=== PATIENT | female | born 1965 | race Caucasian/White ===

== ENCOUNTER 2017-04-19 11:49 | Emergency (ER) | payer OTHER ==
[~2017-04-19] VITALS: Ht 154.9 cm; Wt 82.0 kg
[2017-04-19 11:54] VITALS: Ht 154.9 cm; Wt 82.0 kg
[2017-04-19] MEDS ORDERED: ONDANSETRON (ODT) 4 MG TAB ODT STA (13:55)
[2017-04-19] MEDS ORDERED: MECLIZINE 12.5 MG TAB PO ONE (14:00)
[2017-04-19 14:26] LABS: URINE BLOOD (Dip) POC Trace-intact (NEGATIVE)
[2017-04-19 14:30] LABS: ADD SCAN DIFF NO
[2017-04-19] MEDS ORDERED: ACETAMINOPHEN 500 MG TAB PO STA (14:30)
[2017-04-19 14:31] LABS: BASOPHIL # 0.1 10^3/ul (0.0-0.1); BASOPHILS % 1.5 % (0.0-2.0); EOSINOPHILS # 0.2 10^3/ul (0.0-0.5); EOSINOPHILS % 2.8 % (0.0-7.0); HEMATOCRIT 44.2 % (37.0-47.0); HEMOGLOBIN 15.3 g/dl (12.0-16.0); LYMPHOCYTES # 2.4 10^3/ul (0.8-2.9); LYMPHOCYTES % 44.3 % (15.0-51.0); MEAN CORPUSCULAR HEMOGLOBIN 29.8 pg (29.0-33.0); MEAN CORPUSCULAR HGB CONC 34.6 g/dl (32.0-37.0); MONOCYTE # 0.3 10^3/ul (0.3-0.9); MONOCYTES % 6.1 % (0.0-11.0); NEUTROPHIL # 2.4 10^3/ul (1.6-7.5); NEUTROPHILS % 45.1 % (39.0-77.0); PLATELET COUNT 267 10^3/UL (140-415); RED BLOOD COUNT 5.14 10^6/ul (4.20-5.40); RED CELL DISTRIBUTION WIDTH 12.5 % (11.5-14.5); WHITE BLOOD COUNT 5.4 10^3/ul (4.8-10.8)
--- NOTE | 2017-04-19 14:39 | RADRPT ---
PROCEDURE: CT brain without contrast CLINICAL INDICATION: Headaches, dizziness TECHNIQUE: CT of the brain without contrast was performed on a multidetector CT scanner, with multi planar reformats. One or more of the following dose reduction techniques were used: Automated expos ure control, adjustment in mA and / or kV according to patient size, use of iterative reconstructive technique. CTDIvol = 43 mGy; DLP = 630 mGy-cm. COMPARISON: None available FINDINGS: No acute intracranial hemorrhage is identified. No extra-axial fluid collection is seen. There is no mass effect. No midline shift is identified. Ventricles and sulci are within normal limits for size and configuration. The density of the brain is within normal limits. Deluca-white differentiation is preserved. Atheros clerotic calcifications are seen at the intracranial internal carotid arteries. Osseous structures are unremarkable. There is partial right sphenoid sinus opacification. IMPRESSION: No evidence of acute intracranial pathology. RPTAT: AA .Rich Loyd MD, MD Date Time Electronically viewed and signed by .Rich Loyd MD, on 04/19/2017 14:39 .O/
[2017-04-19 14:52] LABS: ALBUMIN 5.3 g/dl (3.3-4.9); ALBUMIN/GLOBULIN RATIO 1.32; BILIRUBIN,INDIRECT 0.4 mg/dl (0-1.1); BILIRUBIN,TOTAL 0.4 mg/dl (0.2-1.3); CALCIUM 9.6 mg/dl (8.4-10.2); CREATININE 0.57 mg/dl (0.44-1.00); TOTAL PROTEIN 9.3 g/dl (6.1-8.1)
--- NOTE | 2017-04-19 15:06 | ERD ---
ER Documentation Chief Complaint Date/Time DATE: 04/19/17 TIME: 15:04 Chief Complaint DIZZINESS,CUEVAS X 4 DAYS HPI This a 51-year-old female who presents to the emergency department today with her son complaining of dizziness and some headache for the past 4 days. States the headache is on the left side of her head. Patient states that 4 days ago she was seen at [facility] and had an endoscopy. States that since that time she has felt dizzy after the anesthesia. States she does not have results yet of her endoscopy however it was being done to check for an ulcer or gastritis. Denies any hematemesis, melena or hematochezia. States that her dizziness is worse with walking. States she has some nausea but no vomiting. Denies any fevers or chills, blurred vision. ROS All systems reviewed and are negative except as per history of present illness. Medications Home Meds Active Scripts Ondansetron Hcl* (Zofran*) 4 Mg Tablet, 4 MG PO Q6H for NAUSEA AND/OR VOMITING, #30 TAB Prov:BON VILLALBA PA-C 04/19/17 Meclizine Hcl* (Antivert*) 12.5 Mg Tab, 12.5 MG PO Q6H Y for DIZZINESS, #30 TAB Prov:BON VILLALBA PA-C 04/19/17 Acetaminophen* (Tylophen*) 500 Mg Capsule, 1 CAP PO Q6H Y for PAIN AND OR ELEVATED TEMP, #30 CAP Prov:BON VILLALBA PA-C 04/19/17 PMhx/Soc History of Surgery: No Anesthesia Reaction: No Hx Neurological Disorder: No Hx Respiratory Disorders: No Hx Cardiac Disorders: No Hx Psychiatric Problems: No Hx Miscellaneous Medical Probl: No Hx Alcohol Use: No Hx Substance Use: No Hx Tobacco Use: No Smoking Status: Never smoker Physical Exam Vitals Vital Signs Date Time Temp Pulse Resp B/P Pulse Ox O2 Delivery O2 Flow Rate FiO2 04/19/17 11:54 98.1 78 18 165/98 98 Physical Exam Const: No acute distress Head: Atraumatic Eyes: Normal Conjunctiva. PERRLA. EOM intact. ENT: Normal External Ears, Nose and Mouth. Neck: Full range of motion..~ No meningismus. Resp: Clear to auscultation bilaterally Cardio: Regular rate and rhythm, no murmurs Abd: Soft, non tender, non distended. Normal bowel sounds Skin: No petechiae or rashes Back: No midline or flank tenderness Ext: No cyanosis, or edema Neur: Awake and alert. Cranial nerves II through XII intact. No gait ataxia. Psych: Normal Mood and Affect Result Diagram: 04/19/17 1412 04/19/17 1412 Results 24 hrs Laboratory Tests Test 04/19/17 14:12 04/19/17 14:29 White Blood Count 5.410^3/ul Red Blood Count 5.1410^6/ul Hemoglobin 15.3g/dl Hematocrit 44.2% Mean Corpuscular Volume 86.0fl Mean Corpuscular Hemoglobin 29.8pg Mean Corpuscular Hemoglobin Concent 34.6g/dl Red Cell Distribution Width 12.5% Platelet Count 57992^3/UL Mean Platelet Volume 10.0fl Neutrophils % 45.1% Lymphocytes % 44.3% Monocytes % 6.1% Eosinophils % 2.8% Basophils % 1.5% Nucleated Red Blood Cells % 0.0/100WBC Neutrophils # 2.410^3/ul Lymphocytes # 2.410^3/ul Monocytes # 0.310^3/ul Eosinophils # 0.210^3/ul Basophils # 0.110^3/ul Nucleated Red Blood Cells # 0.010^3/ul Sodium Level 144mmol/L Potassium Level 4.0mmol/L Chloride Level 104mmol/L Carbon Dioxide Level 30mmol/L Anion Gap 14 Blood Urea Nitrogen 12mg/dl Creatinine 0.57mg/dl Glucose Level 121mg/dl Calcium Level 9.6mg/dl Total Bilirubin 0.4mg/dl Direct Bilirubin 0.00mg/dl Indirect Bilirubin 0.4mg/dl Aspartate Amino Transf (AST/SGOT) 38IU/L Alanine Aminotransferase (ALT/SGPT) 50IU/L Alkaline Phosphatase 79IU/L Total Protein 9.3g/dl Albumin 5.3g/dl Globulin 4.00g/dl Albumin/Globulin Ratio 1.32 Bedside Urine pH (LAB) 7.0 Bedside Urine Protein (LAB) Negative Bedside Urine Glucose (UA) Negative Bedside Urine Ketones (LAB) Negative Bedside Urine Blood Trace-intact Bedside Urine Nitrite (LAB) Negative Bedside Urine Leukocyte Esterase (L Negative Current Medications Medications (Trade) Dose Ordered Sig/Suze Route PRN Reason Start Time Stop Time Status Last Admin Dose Admin Meclizine HCl (Antivert) 25 mg ONCE ONCE PO 04/19/17 14:00 04/19/17 14:01 DC 04/19/17 14:07 Ondansetron HCl (Zofran Odt) 4 mg ONCE STAT ODT 04/19/17 13:55 04/19/17 13:57 DC 04/19/17 14:06 Acetaminophen (Tylenol Tab) 500 mg ONCE STAT PO 04/19/17 14:30 04/19/17 14:31 DC 04/19/17 14:35 DIAGNOSTIC IMAGING REPORT Patient: NAREN LEO : 1965 Age: 51 Sex: F MR #: [id number] DOS: 04/19/17 0000 Ordering MD: BON VILLALBA PA-C Location: [facility] Room/Bed: PROCEDURE: CT brain without contrast CLINICAL INDICATION: Headaches, dizziness TECHNIQUE: CT of the brain without contrast was performed on a multidetector CT scanner, with multiplanar reformats. One or more of the following dose reduction techniques were used: Automated exposure control, adjustment in mA and / or kV according to patient size, use of iterative reconstructive technique. CTDIvol = 43 mGy; DLP = 630 mGy-cm. COMPARISON: None available FINDINGS: No acute intracranial hemorrhage is identified. No extra-axial fluid collection is seen. There is no mass effect. No midline shift is identified. Ventricles and sulci are within normal limits for size and configuration. The density of the brain is within normal limits. Deluca-white differentiation is preserved. Atherosclerotic calcifications are seen at the intracranial internal carotid arteries. Osseous structures are unremarkable. There is partial right sphenoid sinus opacification. IMPRESSION: No evidence of acute intracranial pathology. RPTAT: AA .Rich Loyd MD, Date Time Electronically viewed and signed by .Rich Loyd MD, on 04/19/2017 14:39 .O/ CC: BON VILLALBA PA-C Procedures/MDM This is a 51-year-old female who presents the emergency department today complaining of headache and dizziness and some nausea that is been ongoing for the past 4 days since she left [place] after having anesthesia for an endoscopy. Given patient's age and complaints of dizziness and headache I did obtain laboratory work as well as a head CT scan and UA and EKG. Laboratory work shows no elevated white blood cell count. Patient is not anemic. Platelets are within normal limits. Electrolytes are within normal limits. Glucose is within normal limits. Liver functions within normal limits. UA is negative for infection test is negative EKG read and interpreted by Dr. Garza rate [address] elevation. No QT elongation. Normal sinus rhythm. Low suspicion for acute RI, PE, pericarditis Head CT noncontrast shows no evidence of acute intracranial pathology. There is no mass-effect and no midline shift. Low suspicion for acute hemorrhage, mass, abscess Patient symptoms at this time is consistent with dizziness of uncertain etiology however likely secondary to reaction from postanesthesia versus benign positional vertigo.. I have explained this to the patient. Low suspicion for cardiac, hematologic, neurological, electrolyte imbalance, serious bacterial infection as a cause of dizziness. She was given meclizine, Zofran and Tylenol here in the emergency department and symptoms improved. Patient will be given a prescription for meclizine, Zofran and Tylenol for home At this time the patient is stable for discharge and outpatient management. Patient should follow up with their PCP in the next 1-2 days. They may return to the emergency department sooner for any persistent or worsening of symptoms. Patient understood and agreed with the plan. Discussed the patient with Dr. Garza and he is in agreement with the plan. . Departure Diagnosis: Primary Impression: Dizziness Condition: Fair BON VILLALBA PA-C Apr 19, 2017 15:06
[2017-04-19] MEDS ORDERED: ONDA4TAB8 PO (15:34)
[2017-04-19] MEDS ORDERED: MECL12.574 PO (15:34)
[2017-04-19] MEDS ORDERED: ACET500C5 PO (15:34)
== END 2017-04-19 16:04 | disposition home or self-care (01) ==
LOC: FTE 11:49
DX: R42 Dizziness and giddiness (principal)
CPT/HCPCS: 70450; 80053; 81003; 85025; 93005; Z7502; Z7610

== ENCOUNTER 2018-11-18 13:29 | Emergency (ER) | payer OTHER ==
[~2018-11-18] VITALS: Wt 78.2 kg
[~2018-11-18 13:29] MED LIST: ACET500C5 PO; MECL12.574 PO; ONDA4TAB8 PO
[2018-11-18 13:32] VITALS: BP 131/74; PULSE 81; RESP 20
[2018-11-18] MEDS ORDERED: CEPH-443 PO (14:30)
[2018-11-18] MEDS ORDERED: PHEN-538 PO (14:30)
[2018-11-18] MEDS ORDERED: CEPHALEXIN 500 MG CAP PO ONE (14:30)
[2018-11-18] MEDS ORDERED: PHENAZOPYRIDINE 100 MG TAB PO ONE (14:30)
--- NOTE | 2018-11-18 14:36 | ERD ---
ER Documentation Chief Complaint Chief Complaint Dysuria HPI 53-year-old female presents with dysuria for last 3 days. She denies fever vomiting, flank pain. She has mild suprapubic pain but no right or left or localized abdominal pain otherwise. She has a remote history of UTI treatment but none recently. Denies . ROS All systems reviewed and are negative except as per history of present illness. Medications Home Meds Active Scripts Phenazopyridine Hcl* (Pyridium*) 200 Mg Tab, 200 MG PO TID PRN for URINARY PAIN, #6 TAB Prov:DEYSI KOENIG MD 11/18/18 Cephalexin* (Keflex*) 500 Mg Capsule, 500 MG PO QID for 5 Days, CAP Prov:DEYSI KOENIG MD 11/18/18 Ondansetron Hcl* (Zofran*) 4 Mg Tablet, 4 MG PO Q6H for NAUSEA AND/OR VOMITING, #30 TAB Prov:BON VILLALBA-C 04/19/17 Meclizine Hcl* (Antivert*) 12.5 Mg Tab, 12.5 MG PO Q6H PRN for DIZZINESS, #30 TAB Prov:BON VILLALBA-C 04/19/17 Acetaminophen* (Tylophen*) 500 Mg Capsule, 1 CAP PO Q6H PRN for PAIN AND OR ELEVATED TEMP, #30 CAP Prov:BON VILLALBA PA-C 04/19/17 Allergies Allergies: Coded Allergies: No Known Allergy (Unverified , 11/18/18) PMhx/Soc History of Surgery: No Anesthesia Reaction: No Hx Neurological Disorder: No Hx Respiratory Disorders: No Hx Cardiac Disorders: No Hx Psychiatric Problems: No Hx Miscellaneous Medical Probl: No Hx Alcohol Use: No Hx Substance Use: No Hx Tobacco Use: No FmHx Family History: No diabetes, No coronary disease, No other Physical Exam Vitals Vital Signs Date Temp Pulse Resp B/P (MAP) Pulse Ox O2 O2 Flow FiO2 Time Delivery Rate 11/18/18 97.8 81 20 131/74 99 13:32 (93) Physical Exam Const: No acute distress Head: Atraumatic Eyes: Normal Conjunctiva ENT: Normal External Ears, Nose and Mouth. Neck: Full range of motion. No meningismus. Resp: Clear to auscultation bilaterally Cardio: Regular rate and rhythm, no murmurs Abd: Soft, mild suprapubic tenderness. No tenderness at McBurney's point no Henderson sign no rebound. Non distended. Normal bowel sounds Skin: No petechiae or rashes Back: No midline or flank tenderness Ext: No cyanosis, or edema Neur: Awake and alert Psych: Normal Mood and Affect Results 24 hrs Laboratory Tests Test 11/18/18 14:00 11/18/18 14:02 Bedside Urine pH (LAB) 7.0 Bedside Urine Protein (LAB) 1+ Bedside Urine Glucose (UA) Negative Bedside Urine Ketones (LAB) Negative Bedside Urine Blood 3+ Bedside Urine Nitrite (LAB) Negative Bedside Urine Leukocyte Esterase (L 3+ POC Beta HCG, Qualitative NEGATIVE Current Medications Medications Dose Sig/Suze Start Time Status Last (Trade) Ordered Route PRN Stop Time Admin Dose Reason Admin Cephalexin 500 mg ONCE ONCE 11/18/18 DC 11/18/18 (Keflex) PO 14:30 11/18/18 14:22 14:31 200 mg ONCE ONCE 11/18/18 DC 11/18/18 Phenazopyridi PO 14:30 11/18/18 14:22 ne HCl 14:31 (Pyridium) Procedures/MDM And shows 3+ leukocyte esterase and 3+ blood. HCG is negative. Patient was given Keflex and Pyridium. Patient presents with signs and symptoms of uncompli cated cystitis without signs or symptoms of pyelonephritis, signs of abdominal pain. Abscess, appendicitis, no evidence of surgical abdomen. She will be treated with instructions for fluids, Keflex, Pyridium, primary care follow-up and return precautions. The patient was stable with no new complaints during the ER course. Clinically, there is no current evidence to suggest meningitis, sepsis, acute abdomen, pneumonia, stroke, acute coronary syndrome, pulmonary embolism, aortic dissection or any other emergent condition appearing to require further evaluation or hospitalization. Patient counseled regarding my diagnostic impression and care plan. Prior to discharge all questions answered. Pt agrees with treatment plan and understands strict return precautions. Pt is instructed to follow up with primary care provider within 24-48 hours. Precautionary instructions provided including instructions to return to the ER if not improving or for any worsening or changing symptoms or concerns. Departure Diagnosis: Primary Impression: UTI (urinary tract infection) Urinary tract infection type: acute cystitis Hematuria presence: without hematuria Qualified Codes: N30.00 - Acute cystitis without hematuria Condition: Stable Patient Instructions: Understanding Urinary Tract Infections (UTIs) Additional Instructions: ORINA TIENE INFECCION. Cheque otro vez con lawler doctor primario en el proximo brown or regresa para mas o nueva simptomas. DEYSI KOENIG MD Nov 18, 2018 14:36
== END 2018-11-18 14:45 | disposition home or self-care (01) ==
LOC: FTE 13:29
DX: N30.00 Acute cystitis without hematuria (principal)
CPT/HCPCS: 81003; 81025; Z7502; Z7610; 99283